=== PATIENT | male | born 1955 | race Two or more races ===

== ENCOUNTER 2025-02-03 08:44 | Emergency (ER) | payer OTHER ==
[~2025-02-03] VITALS: Ht 172.7 cm; Wt 77.1 kg
[~2025-02-03 08:44] MED LIST: LOTREL 2.5/10 M1 CAP
[2025-02-03] MEDS ORDERED: CARVEDILOL3.125 MG (08:58)
[2025-02-03] MEDS ORDERED: ZESTRIL5 MG (08:58)
[2025-02-03] MEDS ORDERED: ROSUVASTATIN CA20 MG (08:58)
[2025-02-03 08:59] VITALS: BP 130/73; O2SAT 98
[2025-02-03] MEDS ORDERED: DEXAMETHASONE SODIUM PHOSPHATE 4 MG/ML VIAL IM STA (09:32)
[2025-02-03] MEDS ORDERED: ACETAMINOPHEN 500 MG GEL..CAP PO STA (09:32)
[2025-02-03] MEDS ORDERED: ACETAMINOPHEN 500 MG GEL..CAP PO ONE (09:40)
[2025-02-03] MEDS ORDERED: DEXAMETHASONE SODIUM PHOSPHATE 4 MG/ML VIAL ONE (09:40)
[2025-02-03 10:05] LABS: BASO % 0.5 % (0.1-1.2); EOS # 0.24 (0.04-0.54); EOS % 3.1 % (0.7-7.0); LYMPH # 1.17 (1.18-3.74); LYMPH % 15.3 % (19.3-53.1); MEAN PLATELET VOLUME 9.20 fl (9.4-12.4); MONO # 0.58 (0.24-0.82); MONO % 7.6 % (4.7-12.5); NEUT # 5.59 (1.56-6.13); NEUT % 73.4 % (34.0-71.1); RED CELL DISTRIBUTION WIDTH 14.5 % (11.6-14.4)
[2025-02-03 10:34] LABS: INR 1.1
[2025-02-03 10:43] LABS: BUN CREA RATIO 12.0 (7.0-25.0); CREATININE SERUM 0.98 mg/dL (0.70-1.30); GFR 76.06; GLUCOSE FASTING 72.0 mg/dL (65-100); OSMOLALITY SERUM 285.0 MOSM/KG (275-295)
== END 2025-02-03 13:01 | disposition home or self-care (01) ==
LOC: ER 08:44
PROVIDERS: General Practice
DX: R42 Dizziness and giddiness (principal); R51.9 Headache, unspecified; M94.0 Chondrocostal junction syndrome [Tietze]; I10 Essential (primary) hypertension; Z88.6 Allergy status to analgesic agent
CPT/HCPCS: 36415; 70450; 71045; 93005; 96372; 99284; J1100